=== PATIENT | female | born 1955 | race Caucasian/White ===

== ENCOUNTER → 2023-11-06 14:10 | Outpatient (REF) | payer OTHER, SELFPAY | LOC: RAD 14:10 | PROVIDERS: ATTENDING PHYSICIAN Physician Assistant Medical | DX: M79.669 Pain in unspecified lower leg (principal) | CPT/HCPCS: 93971 ==

== ENCOUNTER → 2024-03-25 10:32 | Outpatient (REF) | payer OTHER, SELFPAY | LOC: HWWDC 10:32 | PROVIDERS: ATTENDING PHYSICIAN Obstetrics & Gynecology Gynecology; FAMILY PHYSICIAN Physician Assistant Medical | DX: Z12.31 Encounter for screening mammogram for malignant neoplasm of breast (principal) | CPT/HCPCS: 77063; 77067 ==

== ENCOUNTER → 2024-09-08 10:46 | Outpatient (REF) | payer OTHER, SELFPAY | LOC: HWRAD 10:46 | PROVIDERS: ATTENDING PHYSICIAN Internal Medicine Rheumatology; FAMILY PHYSICIAN Family Medicine | DX: M81.0 Age-related osteoporosis without current pathological fracture (principal); Z13.820 Encounter for screening for osteoporosis | CPT/HCPCS: 77080 ==

== ENCOUNTER → 2025-03-28 10:05 | Outpatient (REF) | payer OTHER, SELFPAY | LOC: HWRCS 10:05 | PROVIDERS: ATTENDING PHYSICIAN Internal Medicine Cardiovascular Disease; FAMILY PHYSICIAN Family Medicine | DX: I34.0 Nonrheumatic mitral (valve) insufficiency (principal); I34.1 Nonrheumatic mitral (valve) prolapse | CPT/HCPCS: 93306 ==